=== PATIENT | female | born 1990 | race Caucasian/White ===

== ENCOUNTER 2017-01-20 13:59 | Emergency (ER) | payer OTHER ==
[~2017-01-20] VITALS: Ht 167.6 cm; Wt 119.7 kg
[2017-01-20 19:32] VITALS: BP 130/67
== END 2017-01-20 19:32 | disposition home or self-care (01) ==
LOC: ED 13:59
DX: S29.011A Strain of muscle and tendon of front wall of thorax, initial encounter (principal); S16.1XXA Strain of muscle, fascia and tendon at neck level, initial encounter; S30.1XXA Contusion of abdominal wall, initial encounter; V49.9XXA Car occupant (driver) (passenger) injured in unspecified traffic accident, initial encounter; Y93.89 Activity, other specified; Y92.89 Other specified places as the place of occurrence of the external cause; Y99.8 Other external cause status

== ENCOUNTER 2018-11-19 19:44 | Emergency (ER) | payer MEDICAID ==
[~2018-11-19] VITALS: Ht 167.6 cm; Wt 132.0 kg
[2018-11-19 20:13] VITALS: Ht 167.6 cm; Wt 132.0 kg
[2018-11-20 00:06] VITALS: BP 128/82
== END 2018-11-20 00:06 | disposition home or self-care (01) ==
LOC: ED 19:44
DX: S61.451A Open bite of right hand, initial encounter (principal); W54.0XXA Bitten by dog, initial encounter; Y93.89 Activity, other specified; Y92.89 Other specified places as the place of occurrence of the external cause; Y99.8 Other external cause status
CPT/HCPCS: 90715; J0295; J2001

== ENCOUNTER 2019-04-06 21:16 | Emergency (ER) | payer BC ==
[~2019-04-06] VITALS: Ht 167.6 cm; Wt 136.5 kg
[2019-04-06 21:20] VITALS: Ht 167.6 cm; Wt 136.5 kg
[2019-04-06 22:14] LABS: BASOPHIL % 0.4 % (0-2); PLATELET COUNT 310 x10^3mcL (130-400)
[2019-04-06 22:22] LABS: CALCIUM 9.4 mg/dL (8.5-10.1); CARBON DIOXIDE 24.7 mmol/L (21-32); CHLORIDE SERUM 109 mmol/L (98-107); CREATININE SERUM 0.7 mg/dL (0.6-1.0); GFR1 > 60 mL/min; GLUCOSE SERUM 101 mg/dL (74-106); SODIUM SERUM 142 mmol/L (136-145)
[2019-04-06 22:27] LABS: ALBUMIN 3.5 g/dL (3.4-5.0); ALKALINE PHOSPHATASE 106 U/L (46-116); ALT/SGPT 32 U/L (14-59); AST/SGOT 12 U/L (15-37); BILIRUBIN TOTAL 0.19 mg/dL (0.20-1.00); TOTAL PROTEIN, SERUM 7.3 g/dL (6.4-8.2)
[2019-04-06 23:57] LABS: T4(THYROXINE) 7.6 ug/dL (4.7-13.3)
[2019-04-07 00:41] LABS: AMPHETAMINE QUAL UR NONE DETECTED (See below)
[2019-04-07 01:47] VITALS: BP 106/75
== END 2019-04-07 01:47 | disposition home or self-care (01) ==
LOC: ED 21:16
PROVIDERS: Emergency Medicine
DX: K21.9 Gastro-esophageal reflux disease without esophagitis (principal); E11.9 Type 2 diabetes mellitus without complications; E66.01 Morbid (severe) obesity due to excess calories; Z68.42 Body mass index [BMI] 45.0-49.9, adult; Z90.49 Acquired absence of other specified parts of digestive tract; Z98.890 Other specified postprocedural states
CPT/HCPCS: 36415; 85378